=== PATIENT | male | born 1975 | race Caucasian/White ===

== ENCOUNTER 2019-08-31 03:36 | Emergency (ER) | payer OTHER ==
[~2019-08-31] VITALS: Ht 172.7 cm; Wt 77.1 kg
[2019-08-31 03:45] VITALS: BP_SYST 136
--- NOTE | 2019-08-31 03:50 | NUR ---
Patient to ER bed 8 to gown for evaluation. Side rails up. Report given to IRWIN CRUM.
--- NOTE | 2019-08-31 04:12 | NUR ---
Pt present to ER with right pointer finger wound. Pt A&Ox4. Pt states one week ago, a bumb appeared on his right pointer finger knuckle. Pt states he picked it and squeezed out clear liquid. Pt states finger began to become very swollen and red. Pt states he felt lots of pressure in finger. Pt states he squeezed pus out of wound approximately 6 times. Pt states each time he expressed the wound, the drainage color got more yellow and green. Pt states pain 6/10. Pt states pain increases with movement and touching finger. Breath sounds bilaterally clear with no use of accessory muscles. Will continue to monitor.
--- NOTE | 2019-08-31 06:30 | NUR ---
Pt c/o pain and swelling to right index finger x 1 week. Swelling, redness, and sore to proximal aspect of digit 2 of RHA. Pt states that sore started off as a small bump. He thought it was an ingrown hair, so he popped it and pus and blood drained from site.
--- NOTE | 2019-08-31 06:40 | NUR ---
MD Bernal at bedside.
[2019-08-31] MEDS ORDERED: ACETAMINOPHEN 500 MG TABLET PO ONE (07:00)
[2019-08-31] MEDS ORDERED: SULFAMETHOXAZOLE/TRIMETHOPR DS 1 TABLET PO ONE (07:00)
--- NOTE | 2019-08-31 07:12 | NUR ---
Specimen for wound culture collected and sent to lab.
[2019-08-31] MEDS ORDERED: BACITRACIN ZINC 15 GM TOPICAL OINTMENT TP ONE (07:15)
--- NOTE | 2019-08-31 07:20 | NUR ---
Wound to digit 2 of RHA cleaned with sterile NS and betadine, pat dry with sterile guage, bacitracin applied, covered with non-adhesive dsg and secured with kerlex. Cap refil < 3 sec to nail bed of affected finger before and after application of kerlex. No neurosensory deficits.
[2019-08-31 07:28] VITALS: BP_SYST 128
--- NOTE | 2019-08-31 07:28 | NUR ---
Patient given written and verbal discharge instructions and verbalizes understanding. ER MD discussed with patient the results and treatment provided. Patient in stable condition. ID arm band removed. Rx of Ibuprofen adn Keflex given. Patient educated on pain management and to follow up with PMD. Pain Scale 2/10. Opportunity for questions provided and answered. Medication side effect fact sheet provided.
[2019-08-31] MEDS ORDERED: BACITRACIN 1 GM OINT TP ONE (07:32)
== END 2019-08-31 07:28 | disposition home or self-care (01) ==
LOC: SED 03:36
DX: L02.522 Furuncle left hand (principal)
CPT/HCPCS: 87070-TC; 87075-TC; 99284